=== PATIENT | female | born 1945 | race Caucasian/White ===

== ENCOUNTER 2025-05-16 08:16 | Day surgery (SDC) | payer MEDICARE ==
[2025-05-16] MEDS ORDERED: Sodium Bicarbonate 2.5 MEQ/5 ML SDV ONE (08:25)
[2025-05-16 09:18] VITALS: BP 164/77
[2025-05-16 10:59] LABS: CSF Source CSF
[2025-05-16 11:16] LABS: CSF, Glucose 49.0 mg/dl (40-70); CSF, Protein 26.9 mg/dL (15-40)
[2025-05-16] MEDS ORDERED: Acetaminophen 500 MG TAB ONE (11:30)
== END 2025-05-16 11:50 | disposition home or self-care (01) ==
LOC: RAD 08:16
PROVIDERS: ATTEND Surgery
PROC: 009U3ZX Drainage of Spinal Canal, Percutaneous Approach, Diagnostic (ICD-10-PCS; principal; 2025-05-16)
DX: G93.89 Other specified disorders of brain (principal); R41.3 Other amnesia; I12.9 Hypertensive chronic kidney disease with stage 1 through stage 4 chronic kidney disease, or unspecified chronic kidney disease; N18.31 Chronic kidney disease, stage 3a; E78.5 Hyperlipidemia, unspecified; K58.2 Mixed irritable bowel syndrome; K21.9 Gastro-esophageal reflux disease without esophagitis
CPT/HCPCS: 62270; 82945; 84157; 87070; 87205; 89051